=== PATIENT | female | born 1940 | race Caucasian/White ===

== ENCOUNTER 2016-09-02 12:41 | Emergency (ER) | payer MEDICARE, OTHER ==
--- NOTE | 2016-09-02 13:18 | ER Document Report ---
ED Medical Screen (RME) - General Chief Complaint: General Weakness Stated Complaint: WEAKNESS,CONFUSION Time seen by provider: 13:17 Mode of Arrival: Wheelchair Information source: Patient Notes: This is a 75-year-old female with a history of lupus, hypertension, renal cancer (left nephrectomy) who presents to the emergency room with generalized weakness, by mouth intake, dizziness and difficulty ambulating because of the weakness. The patient's symptoms have been going on for the past week. She does state she was treated for a UTI 2 weeks ago. Patient does report some mild right flank tenderness. Past surgical history: Left nephrectomy, hysterectomy, appendectomy Primary care physician: Dr. Caceres Allergies: Ibuprofen, nitrofurantoin, sulfa TRAVEL OUTSIDE OF THE [place] IN LAST 30 DAYS: No - Related Data Allergies/Adverse Reactions: nitrofurantoin [From Macrobid] Allergy (Mild, Verified 09/02/16 12:55) ibuprofen [Ibuprofen] Allergy (Verified 09/02/16 12:55) Nitrofuran Analogues Allergy (Verified 09/02/16 12:55) Sulfa (Sulfonamide Antibiotics) Allergy (Verified 09/02/16 12:55) Past Medical History - Social History Frequency of alcohol use: None Drug Abuse: None - Past Medical History Cardiac Medical History: Reports: Hx Hypertension Denies: Hx Coronary Artery Disease, Hx Heart Attack Pulmonary Medical History: Reports: Hx Pneumonia - 20 years ago Denies: Hx Asthma, Hx Bronchitis, Hx COPD Neurological Medical History: Denies: Hx Cerebrovascular Accident, Hx Seizures Renal/ Medical History: Denies: Hx Peritoneal Dialysis GI Medical History: Denies: Hx Hepatitis, Hx Hiatal Hernia, Hx Ulcer Musculoskeltal Medical History: Reports Hx Arthritis - all over Infectious Medical History: Denies: Hx Hepatitis Past Surgical History: Reports: Hx Abdominal Surgery - EGD with dilation, Hx Appendectomy, Hx Cholecystectomy, Hx Hysterectomy, Hx Orthopedic Surgery - Right Carpal Tunnel, Right Knee Arthroscopy. Denies: Hx Mastectomy, Hx Open Heart Surgery, Hx Pacemaker - Immunizations Hx Diphtheria, Pertussis, Tetanus Vaccination: No Physical Exam - Vital signs Vitals: Temp Pulse Resp BP Pulse Ox 99.2 F 94 20 124/69 94 09/02/16 12:55 09/02/16 12:55 09/02/16 12:55 09/02/16 12:55 09/02/16 12:55 Course - Vital Signs Vital signs: Temp Pulse Resp BP Pulse Ox 99.2 F 94 20 124/69 94 09/02/16 12:55 09/02/16 12:55 09/02/16 12:55 09/02/16 12:55 09/02/16 12:55
[2016-09-02] MEDS ORDERED: NORMAL SALINE 500 ML IV PRN (13:19)
[2016-09-02 14:21] LABS: HEMATOCRIT 44.4 % (36.0-47.0); HEMOGLOBIN 15.3 g/dL (12.0-15.5); HGB HCT DIFFERENCE 1.5; MEAN CORPUSCULAR HEMOGLOBIN 30.8 pg (27.0-33.4); MEAN CORPUSCULAR HGB CONC 34.5 g/dL (32.0-36.0); MEAN CORPUSCULAR VOLUME 89 fl (80-97); RED BLOOD COUNT 4.97 10^6/uL (3.72-5.28); RED CELL DISTRIBUTION WIDTH 13.2 % (11.5-14.0); WHITE BLOOD COUNT 5.7 10^3/uL (4.0-10.5)
[2016-09-02 14:25] LABS: APPEARANCE,URINE SLIGHTLY-CLOUDY; BILIRUBIN,URINE NEGATIVE (NEGATIVE); GLUCOSE, URINE NEGATIVE (NEGATIVE); KETONES,URINE NEGATIVE (NEGATIVE); LEUKOCYTE ESTERASE,URINE NEGATIVE (NEGATIVE); NITRITE,URINE NEGATIVE (NEGATIVE); PROTEIN,URINE NEGATIVE (NEGATIVE); UROBILINOGEN,URINE NEGATIVE mg/dL (<2.0)
[2016-09-02 14:40] LABS: ALANINE AMINOTRANSFERASE 57 U/L (9-52); ALBUMIN 3.7 g/dL (3.5-5.0); ALKALINE PHOSPHATASE 92 U/L (38-126); ANION GAP 9 (5-19); ASPARTATE AMINO TRANSFERASE 64 U/L (14-36); BILIRUBIN,DIRECT 0.5 mg/dL (0.0-0.4); BLOOD UREA NITROGEN 22 mg/dL (7-20); CALCIUM 10.3 mg/dL (8.4-10.2); CARBON DIOXIDE 25 mmol/L (22-30); CHLORIDE 102 mmol/L (98-107); CREATINE KINASE 624 U/L (30-135); CREATININE RESULT 0.69 mg/dL (0.52-1.25); GLUCOSE 127 mg/dL (75-110); POTASSIUM 4.1 mmol/L (3.6-5.0); SODIUM 135.6 mmol/L (137-145); TOTAL PROTEIN 6.7 g/dL (6.3-8.2)
[2016-09-02 14:42] LABS: BAND NEUTROPHILS % (MANUAL) 7 % (3-5); BASOPHILS % (MANUAL) 0 % (0-2); EOSINOPHILS % (MANUAL) 0 % (0-6); LYMPHOCYTES % (MANUAL) 2 % (13-45); TOTAL CELLS COUNTED 100
[2016-09-02 14:43] LABS: RBC MORPHOLOGY COMMENT NORMO-CYTIC/CHROMIC
[2016-09-02 14:48] LABS: CREATINE KINASE MB 2.25 ng/mL (<4.55)
[2016-09-02 14:49] LABS: TROPONIN I < 0.012 ng/mL
--- NOTE | 2016-09-02 15:26 | ER Document Report ---
ED General - General Time seen by provider: 15:05 Mode of Arrival: Wheelchair Information source: Patient, Friend TRAVEL OUTSIDE OF THE [place] IN LAST 30 DAYS: No - HPI Onset: Other - Refer to HPI notes Similar symptoms previously: Yes Recently seen / treated by doctor: Yes <BLAYNE DIAZ - Last Filed: 09/02/16 18:03> <REMYCHEVYEDGARDO - Last Filed: 09/02/16 21:35> - General Chief Complaint: General Weakness Stated Complaint: WEAKNESS,CONFUSION Notes: Patient is a 75-year-old female presenting to the emergency department for multiple non-acute symptoms. Patient states she has had some dizziness and nausea along with some right-sided pain. Patient states her pain has been waxing and waning for 1-2 months and describes it as being sharp. Patient states her bowel movements are normal and denies any tarry or bloody stools. Patient states she was diagnosed with a UTI 2 weeks ago and was being treated with antibiotics. Patient states she has also fallen several times in the past over the past 3-4 months. Patient denies any increased amounts of acetaminophen. Patient denies any new medications. Patient has a history of lupus, kidney cancer, cholecystectomy, and hysterectomy. Patient's primary care physicians are Dr. Martinez and Dr. Caceres. (BLAYNE DIAZ) - Related Data Allergies/Adverse Reactions: nitrofurantoin [From Macrobid] Allergy (Mild, Verified 09/02/16 12:55) ibuprofen [Ibuprofen] Allergy (Verified 09/02/16 12:55) Nitrofuran Analogues Allergy (Verified 09/02/16 12:55) Sulfa (Sulfonamide Antibiotics) Allergy (Verified 09/02/16 12:55) Past Medical History - General Information source: Patient - Social History Smoking Status: Never Smoker Chew tobacco use (# tins/day): No Frequency of alcohol use: None Drug Abuse: None Family History: None Patient has suicidal ideation: No Patient has homicidal ideation: No - Past Medical History Cardiac Medical History: Reports: Hx Hypertension Pulmonary Medical History: Reports: Hx Pneumonia - 20 years ago Musculoskeltal Medical History: Reports Hx Arthritis - all over Past Surgical History: Reports: Hx Abdominal Surgery - EGD with dilation, Hx Appendectomy, Hx Cholecystectomy, Hx Hysterectomy, Hx Orthopedic Surgery - Right Carpal Tunnel, Right Knee Arthroscopy - Immunizations Hx Diphtheria, Pertussis, Tetanus Vaccination: No Hx Pneumococcal Vaccination: 01/27/10 <BLAYNE DIAZ - Last Filed: 09/02/16 18:03> Review of Systems - Review of Systems Constitutional: See HPI, Weakness EENT: No symptoms reported Cardiovascular: See HPI, Dizziness Respiratory: No symptoms reported Gastrointestinal: See HPI, Abdominal pain, Nausea, Poor appetite Genitourinary: No symptoms reported Female Genitourinary: No symptoms reported Musculoskeletal: No symptoms reported Skin: No symptoms reported Hematologic/Lymphatic: No symptoms reported Neurological/Psychological: See HPI, Weakness -: Yes All other systems reviewed and negative <BLAYNE DIAZ - Last Filed: 09/02/16 18:03> Physical Exam <BLAYNE DIAZ - Last Filed: 09/02/16 18:03> <EDGARDO ACKERMAN - Last Filed: 09/02/16 21:35> - Vital signs Vitals: Temp Pulse Resp BP Pulse Ox 99.2 F 94 20 124/69 94 09/02/16 12:55 09/02/16 12:55 09/02/16 12:55 09/02/16 12:55 09/02/16 12:55 - Notes Notes: GENERAL: Alert, interacts well. No acute distress. HEAD: Normocephalic, atraumatic. EYES: Pupils equal, round, and reactive to light. Extraocular movements intact. ENT: Oral mucosa moist, tongue midline. NECK: Full range of motion. Supple. Trachea midline. LUNGS: Clear to auscultation bilaterally, no wheezes, rales, or rhonchi. No respiratory distress. HEART: Regular rate and rhythm. No murmurs, gallops, or rubs. ABDOMEN: Soft, RLQ tenderness to palpation, no guarding, rigidity, or rebound. Non-distended. Bowel sounds present in all 4 quadrants. EXTREMITIES: Moves all 4 extremities spontaneously. No edema, radial and dorsalis pedis pulses 2/4 bilaterally. No cyanosis. NEUROLOGICAL: Alert and oriented x3. Normal speech. PSYCH: Normal affect, normal mood. SKIN: Warm, dry, normal turgor. No rashes or lesions noted. (BLAYNE DIAZ) Course - Laboratory Result Diagrams: 09/02/16 13:45 09/02/16 13:45 <BLAYNE DIAZ - Last Filed: 09/02/16 18:03> - Laboratory Result Diagrams: 09/02/16 13:45 09/02/16 13:45 <EDGARDO ACKERMAN - Last Filed: 09/02/16 21:35> - Re-evaluation Re-evalutation: 09/02/16 16:50 CBC shows slight bandemia but no leukocytosis and no anemia, coags normal, CMP shows slightly low sodium of 135.6, slightly elevated BUN at 22, slightly elevated glucose of 127, calcium elevated at 10.3, direct bilirubin marginally elevated at 0.5, AST and ALT both marginally elevated at 64 and 57 respectively , CK elevated at 624 other cardiac enzymes negative, albumin normal, moderate blood in the urine with only 1 red blood cell makes me more suspicious of myoglobinuria than true hematuria. No evidence of rhabdomyolysis, no renal failure. CT scan of the abdomen and pelvis was ordered given her intermittent right lower quadrant pain and her history of lupus and increasing fatigue. No evidence of right lower quadrant malignancy however there is a New 3.8 cm soft tissue mass in the inferior portion of left adrenal gland. No acute abnormalities were found today that require action today. In review of patient's past records she is seen to been diagnosed with BPPV approximately one year ago and underwent successful physical therapy for her vertigo. Patient is currently in physical therapy but not attending her appointments as she states they just make her feel too tired. I did discuss with the patient that the return of her dizziness may well represent a return of her BPPV, I do not see any signs of an acute infarct at this time. Patient does not have any focal neurologic deficits. Patient does note that Dr. Martinez (the doctor who previously treated her for her BPPV) has ordered MRI and MRI within the past week but she does not yet have the results of this. This MRI is not available to me in our computer at this time. Patient has been having all of her symptoms with the exception of her decreased appetite for the past 2-3 months at a minimum. I do not find any infectious or metabolic cause for decreased appetite at this time however it is very important that she follow-up with her primary care physician for further evaluation of her adrenal mass. Patient will be discharged home with instructions to follow-up with her primary care physician as well as Dr. Martinez and all of the other physicians who are currently working up these chronic medical problems. She should return for any new or concerning symptoms. (EDGARDO ACKERMAN) - Vital Signs Vital signs: Temp Pulse Resp BP Pulse Ox 98.4 F 83 18 129/90 H 97 09/02/16 17:50 09/02/16 17:50 09/02/16 17:50 09/02/16 17:50 09/02/16 17:50 - Laboratory Laboratory results interpreted by me: 09/02/16 09/02/16 09/02/16 13:45 13:45 13:45 Seg Neuts % (Manual) 86 H Band Neutrophils % 7 H Lymphocytes % (Manual) 2 L Abs Lymphs (Manual) 0.2 L Sodium 135.6 L BUN 22 H Glucose 127 H Calcium 10.3 H Direct Bilirubin 0.5 H AST 64 H ALT 57 H Creatine Kinase 624 H Urine Blood MODERATE H - EKG Interpretation by Me Additional EKG results interpreted by me: 09/02/16 16:55 EKG shows sinus rhythm at a rate of 86, left anterior hemiblock, right bundle branch block, no ST segment elevations or depressions, no abnormal T-wave inversions, unchanged from prior EKG per my interpretation. (EDGARDO ACKERMAN) Discharge <BLAYNE DIAZ - Last Filed: 09/02/16 18:03> <EDGARDO ACKERMAN - Last Filed: 09/02/16 21:35> - Discharge Clinical Impression: Dizziness and giddiness, Left adrenal mass, Anorexia Condition: Stable Disposition: HOME, SELF-CARE Additional Instructions: Today we did not find any signs of infection. I did not find any specific cause for your chronic right lower quadrant abdominal pain or decreased appetite. For your dizziness I would like you to continue following up with Dr. Martinez, it is possible that this is a return of her vertigo and she may once again benefited from vestibular repositioning therapy as you had last year. On your CAT scan today we did find evidence of a new 3.8 cm mass on her left adrenal gland. I do not know what this is today. It is very important that you follow-up with her primary care physician Dr. Caceres as an outpatient to have this worked up further. You must have this worked up further to find out whether or not it is cancer. You have no signs of dehydration today. Please continue drinking plenty of water. Drinking and short and boost shakes very good way to keep appropriate calorie intake and going. Please also eat multiple small meals or snacks throughout the day if you have difficulty eating 3 normally sized meals in the day. Referrals: IWONA CACERES MD [Primary Care Provider] - Follow up in 3-5 days Scribe Attestation: 09/02/16 21:35 I personally performed the services described in the documentation, reviewed and edited the documentation which was dictated to the scribe in my presence, and it accurately records my words and actions. (EDGARDO ACKERMAN) Scribe Documentation - Scribe Written by Robi:: Robi Goncalves, 09/02/16 18:19 acting as scribe for :: Gaurav <BLAYNE DIAZ - Last Filed: 09/02/16 18:03>
--- NOTE | 2016-09-02 16:34 | EKG REPORT ---
SEVERITY:- ABNORMAL ECG - SINUS RHYTHM RBBB AND LAFB LEFT VENTRICULAR HYPERTROPHY : Confirmed by: Carlos Eduardo Patel MD 02-Sep-2016 16:33:33
[2016-09-02 17:51] VITALS: BP 129/90
== END 2016-09-02 17:51 | disposition home or self-care (01) ==
LOC: ER 12:41
DX: R42 Dizziness and giddiness (principal); R53.1 Weakness; R10.31 Right lower quadrant pain; D72.825 Bandemia; R11.0 Nausea; E27.8 Other specified disorders of adrenal gland; R63.0 Anorexia; I45.10 Unspecified right bundle-branch block; I10 Essential (primary) hypertension; Z87.440 Personal history of urinary (tract) infections; Z91.81 History of falling; Z90.49 Acquired absence of other specified parts of digestive tract; Z90.710 Acquired absence of both cervix and uterus; Z88.1 Allergy status to other antibiotic agents; Z88.6 Allergy status to analgesic agent; Z88.2 Allergy status to sulfonamides; Z88.8 Allergy status to other drugs, medicaments and biological substances
CPT/HCPCS: 36415; 71010; 74177; 80053; 81001; 82550; 82553; 84484; 85025; 85610; 93005; 93010; 99285

== ENCOUNTER 2018-07-04 17:02 | Emergency (ER) | payer MEDICARE, OTHER ==
[2018-07-04 17:13] VITALS: BP 187/85
[2018-07-04] MEDS ORDERED: LIDOCAINE 5% (700 MG) TRANSDERMAL ADH..PATCH TP ONE (17:33)
[2018-07-04] MEDS ORDERED: OXYCODONE-ACETAMINOPHEN 5-325 MG TABLET PO ONE (17:33)
--- NOTE | 2018-07-04 17:36 | ER Document Report ---
HPI - HPI Patient complains to provider of: Right lower extremity pain Time Seen by Provider: 07/04/18 17:14 Onset/Duration: Worse Quality of pain: Sharp Pain Level: 3 Context: Patient reports a history of chronic back pain with sciatica. Patient states she has daily pain although the pain worsened today. Patient denies any injury. Patient denies any fever. Patient does have an upcoming appointment with pain management. Patient does report having an MRI within the past month. Patient denies any urinary retention or incontinence. Associated Symptoms: Other - Right lower leg and back pain. denies: Fever Exacerbated by: Standing, Movement, Walking Relieved by: Denies Similar symptoms previously: Yes Recently seen / treated by doctor: No - ROS ROS below otherwise negative: Yes Systems Reviewed and Negative: Yes All other systems reviewed and negative - CONSTITUTIONAL Constitutional: DENIES: Fever, Chills - NEURO Neurology: DENIES: Weakness - GASTROINTESTINAL Gastrointestinal: DENIES: Nausea - REPRODUCTIVE Reproductive: DENIES: : - MUSCULOSKELETAL Musculoskeletal: REPORTS: Extremity pain, Back Pain - DERM Skin Color: Normal Skin Problems: None Past Medical History - General Information source: Patient - Social History Smoking Status: Never Smoker Frequency of alcohol use: None Drug Abuse: None Lives with: Family Family History: None - Past Medical History Cardiac Medical History: Reports: Hx Hypertension Denies: Hx Coronary Artery Disease, Hx Heart Attack Pulmonary Medical History: Reports: Hx Pneumonia - 20 years ago Neurological Medical History: Denies: Hx Cerebrovascular Accident, Hx Seizures Renal/ Medical History: Denies: Hx Peritoneal Dialysis Malignancy Medical History: Reports: Hx Renal (Kidney) Cancer GI Medical History: Reports: Hx Gastroesophageal Reflux Disease Musculoskeletal Medical History: Reports Hx Arthritis - all over Infectious Medical History: Denies: Hx Hepatitis Past Surgical History: Reports: Hx Abdominal Surgery - EGD with dilation, Hx Appendectomy, Hx Cholecystectomy, Hx Hysterectomy, Hx Orthopedic Surgery - Right Carpal Tunnel, Right Knee Arthroscopy - Immunizations Hx Diphtheria, Pertussis, Tetanus Vaccination: No Hx Pneumococcal Vaccination: 01/27/10 Vertical Provider Document - CONSTITUTIONAL Agree With Documented VS: Yes Exam Limitations: No Limitations General Appearance: WD/WN, No Apparent Distress Notes: PHYSICAL EXAMINATION: GENERAL: Well-appearing, well-nourished and in no acute distress. HEAD: Atraumatic, normocephalic. EYES: sclera clear, anicteric, conjunctiva are normal. ENT: nares patent, Moist mucous membranes. NECK: Normal range of motion, supple no lymphadenopathy LUNGS: respirations unlabored HEART: Regular rate and rhythm without murmurs EXTREMITIES: Normal range of motion, no pitting or edema. No cyanosis. Gait normal, pt ambulates without difficulty BACK: Lower lumbar tenderness, right lumbar paraspinal tenderness, right SI joint tenderness, no deformities or step-offs. No CVA tenderness. NEUROLOGICAL: Cranial nerves grossly intact. Normal speech, normal gait. No saddle anesthesia. PSYCH: Normal mood, normal affect. SKIN: Warm, Dry, normal turgor, no rashes or lesions noted. - INFECTION CONTROL TRAVEL OUTSIDE OF THE [place] IN LAST 30 DAYS: No Course - Re-evaluation Re-evalutation: 07/04/18 17:34 Patient has a history of outpatient x-ray as well as MRI that was recently performed last month. Patient does have a pending appointment with pain management to help with her low back pain and radicular pain symptoms. The patient presents with low back pain without signs of spinal cord compression, cauda equina syndrome, infection, aneurysm, or other serious etiology. The patient is neurologically intact. Given the extremely risk of these diagnoses further testing and evaluation for these possibilities does not appear to be indicated at this time. Patient has been instructed to return if the symptoms worsen or change in any way. - Vital Signs Vital signs: Temp Pulse Resp BP Pulse Ox 98.3 F 84 20 187/85 H 96 07/04/18 17:10 07/04/18 17:10 07/04/18 17:10 07/04/18 17:10 07/04/18 17:10 Discharge - Discharge Clinical Impression: Sciatica Qualifiers: Laterality: right Qualified Code(s): M54.31 - Sciatica, right side Condition: Stable Disposition: HOME, SELF-CARE Instructions: Oral Narcotic Medication ([facility]), Sciatica ([facility]), Steroid Medication Additional Instructions: Return immediately for any new or worsening symptoms Followup with your primary care provider, call tomorrow to make a followup appointment Do not take the Percocet if you are taking the tramadol, only take one medication or the other. Prescriptions: Oxycodone HCl/Acetaminophen [Percocet 5-325 mg Tablet] 1 tab PO ASDIR PRN #12 tablet PRN Reason: Prednisone [Deltasone 20 mg Tablet] 2 tab PO DAILY 4 Days tablet Referrals: IWONA PAPPAS MD [Primary Care Provider] - Follow up as needed
== END 2018-07-04 17:50 | disposition home or self-care (01) ==
LOC: ER 17:02
DX: M54.31 Sciatica, right side (principal); M79.604 Pain in right leg; M54.9 Dorsalgia, unspecified; G89.29 Other chronic pain; I10 Essential (primary) hypertension
CPT/HCPCS: 99283; A9270

== ENCOUNTER → 2019-05-04 | Outpatient (CLI) | payer MEDICARE, OTHER ==
--- NOTE | 2019-05-04 10:14 | RADIOLOGY REPORT (SQ) ---
EXAM DESCRIPTION: CT ABD/PELVIS WITH IV ORAL COMPLETED DATE/TIME: 05/04/2019 9:26 am REASON FOR STUDY: RUQ PAIN (R10.11), RLQ PAIN (R10.31) R10.11 RIGHT UPPER QUADRANT PAIN R10.31 RIG HT LOWER QUADRANT PAIN COMPARISON: 09/13/2010, 09/02/2016 TECHNIQUE: CT scan of the abdomen and pelvis performed using helical scanning technique with dynamic intravenous contrast injection. Patient was given oral contrast. Images reviewed with lung, soft ti ssue, and bone windows. Reconstructed coronal and sagittal MPR images reviewed. Delayed images for ev aluation of the urinary system also acquired. All images stored on PACS. All CT scanners at this facility use dose modulation, iterative reconstruction, and/or weight based d osing when appropriate to reduce radiation dose to as low as reasonably achievable (ALARA). [facility]: Dose Right [facility]: CareDose [facility]: Dose Right [facility]: Teradose 4D [facility]: [employer] CONTRAST TYPE AND DOSE: contrast/concentration: Isovue 300.00 mg/ml; Total Contrast Delivered: 99.0 ml; Total Saline Delivered: 72.0 ml RENAL FUNCTION: None required. The patient is less than 50 years old. RADIATION DOSE: CT Rad equipment meets quality standard of care and radiation dose reduction techniq ues were employed. CTDIvol: 26.8 - 26.9 mGy. DLP: 2856 mGy-cm.. LIMITATIONS: None. FINDINGS: LOWER CHEST: Moderate hiatal hernia. LIVER: Normal size. No masses. No dilated ducts. SPLEEN: Normal size. No focal lesions. PANCREAS: No masses. No significant calcifications. No adjacent inflammation or peripancreatic fluid collections. Pancreatic duct not dilated. GALLBLADDER: Surgically absent. ADRENAL GLANDS: No significant masses or asymmetry. Status post left adrenalectomy. RIGHT KIDNEY AND URETER: No solid masses. No significant calcifications. No hydronephrosis or hyd roureter. LEFT KIDNEY AND URETER: Surgically absent. AORTA AND VESSELS: No aneurysm. No dissection. Renal arteries, SMA, celiac without stenosis. RETROPERITONEUM: No retroperitoneal adenopathy, hemorrhage or masses. BOWEL AND PERITONEAL CAVITY: Moderate hiatal hernia. No evidence of intestinal obstruction. Scatter ed colonic diverticula. APPENDIX: Surgically absent PELVIS: Decompressed urinary bladder. Small right ovarian cyst likely. No free fluid. No adenopath y. Status post hysterectomy. ABDOMINAL WALL: No masses. No hernias. BONES: No acute bony abnormality. Lower lumbar facet arthropathy. OTHER: No other significant finding. IMPRESSION: 1. No evidence of acute intra-abdominal/pelvic process. No findings to explain patient 's symptoms. 2. Moderate hiatal hernia, increased from prior. 3. Status post appendectomy, cholecystectomy, left nephrectomy/adrenalectomy and hysterectomy. TECHNICAL DOCUMENTATION: JOB ID: [id number] Quality ID # [id number]: Final reports with documentation of one or more dose reduction techniques (e.g., Au tomated exposure control, adjustment of the mA and/or kV according to patient size, use of iterative reconstruction technique) 2010 [employer]- All Rights Reserved Reading location - IP/workstation name: [email or web address]
== END ==
LOC: RAD 08:41
PROVIDERS: ATTEND Internal Medicine Gastroenterology
DX: R10.11 Right upper quadrant pain (principal); R10.31 Right lower quadrant pain; K44.9 Diaphragmatic hernia without obstruction or gangrene
CPT/HCPCS: 74177; 82565